=== PATIENT | male | born 1930 | race Caucasian/White ===

== ENCOUNTER 2018-08-09 17:40 | Emergency (ER) | payer OTHER ==
--- NOTE | 2018-08-09 17:55 | EDPHY ---
HPI/HX/ROS/PE/MDM Narrative: CHIEF COMPLAINT: Falls at home HISTORY OF PRESENT ILLNESS: The patient is an 87 y/o male with a history of dementia who arrives via EMS from home for evaluation after two falls in the last 24 hours. Per EMS, he had an unwitnessed fall last night and a second one this morning. The patient doesn't remember falling nor does he know why he is in the ED and no other information regarding the falls are available during assessment. Family on scene reported to EMS that the patient's mentation is at baseline and they have not noticed any abnormal behavior or symptoms since the fall. He denies any pain or other symptoms currently. Home medication paperwork sent with patient lists aspirin, but no anticoagulants. Patient is a poor historian due to dementia, but currently denies fever, chills , chest pain, shortness of breath, palpitations, vomiting, diarrhea, urinary complaints, headache, neck pain, back pain, extremity pain, lightheadedness. REVIEW OF SYSTEMS: Unable to obtain due to dementia. PAST MEDICAL HISTORY: 1. Advanced dementia 2. CAD 3. CKD 4. Diabetes type II 5. BPH 6. Hypertension - Losartan 7. Cellulitis with sepsis 8. C. difficile 9. CHF - Lasix 10. Hypercholesterolemia SOCIAL HISTORY: Lives at home with family. DNR. Nonsmoker. Prior medical records reviewed including admission 04/17/2018 for aspiration pneumonitis and hypoxemia. VITAL SIGNS: Reviewed by me GENERAL: Well-developed, well-nourished, resting comfortably in no respiratory distress. HEENT: Possible mild forehead abrasion vs. mildly excoriated area, otherwise atraumatic. Eyes: No icterus, no injection. Mouth: moist mucous membranes. No erythema or lesions. Neck: supple with no adenopathy. LUNGS: Clear to auscultation bilaterally, no wheezes, rhonchi or rales. CARDIAC: Regular rate and rhythm, no rubs, murmurs or gallops. ABDOMEN: Soft, nontender, nondistended. BACK: No CVA tenderness. EXTREMITIES: Abrasion left forearm. Chronic peripheral edema in stocking glove distribution bilaterally, erythematous and mildly tender. Range of motion is normal throughout. NEURO: Alert and oriented x2, baseline per family, grossly nonfocal. SKIN: Warm and dry, no rash. PSYCHIATRIC: Normal mentation, no agitation. Portions of this note were transcribed by a medical records manager. I personally performed a history, physical exam, medical decision making, and confirmed accuracy of information the transcribed note. ED Course: This is an 87 y/o male with advanced dementia who presents from home after 2 witnessed falls. He has no complaints currently. Further history unavailable at this time. Mild forehead and left forearm abrasions noted. Bilateral lower extremity edema present. Plan for IV, labs, UA, EKG, head and neck CTs, chest x- ray. The 12 lead EKG was interpreted by myself. Sinus mechanism, nonspecific intraventricular conduction delay. See hard copy and/or "tracemaster" electronic copy for interpretation. 1832: and daughter now at bedside. Patient's thinks he fell trying to get out of bed overnight and she was worried he struck his head. He fell again later this afternoon and she believes it is due to leg weakness, but says he falls frequently so it's hard for her to tell what caused the fall today. He did complain to them of back pain at some point this afternoon. He also has been walking with a list to the side, which is new today. Also this afternoon his daughter says he had nonsensical speech. His says he has a history of multiple prior strokes and does have occasional word-finding difficulty, but his speech today was different. They brought him to the ED primarily because another family member was concerned about the recurrent falls. They deny fever, vomiting, diarrhea, cough, or other symptoms. Spine x-rays ordered. Thoracic, lumbar x-rays: no acute fracture. Reassessed patient and discussed findings with family. They are concerned about taking him home due to his recurrent falls and would like him to be admitted to a [facility] facility. Dr. Vela at [facility] accepts admission. MDM: Differential diagnosis of this patients injury was considered including but not limited to intracranial injury, long bone and pelvic bone fracture, spinal injury, intrathoracic injury, extremity injury, intra-abdominal injury, lacerations, abrasions, and contusions. - Data Points Imaging Results: Imaging Impressions Head CT 08/09/18 17:50 Impression: Diffuse severe cerebral atrophy. Nothing acute detected. 2. CT Cervical Spine Without Contrast History: Trauma. Recurrent falls. Technique: Multi-slice ultrathin single breath-hold helical CT through the neck from the skull base through the thoracic inlet without contrast. Soft tissue and bone window evaluation is performed. Sagittal and coronal reconstructions are obtained. Dose reduction techniques were utilized. Findings: There is diffuse osteoporosis. Alignment is anatomic. No fracture or dislocation is identified. Disk spaces are well maintained except for mild narrowing of the C6-C7 disk space.. There is an old Schmorl's node defect involving the inferior C3 and C6 cortical endplates. Facets are normally aligned and are intact. There is bilateral degenerative facet disease, right more numerous than left. The skull base - C1 and C1-C2 relationships are normal. The odontoid process is intact. There is no evidence of a prevertebral or epidural hematoma. The cervical thoracic junction is normally aligned. Impression: Scattered mild degenerative changes described above. Nothing acute identified. Results discussed with Dr. Nichols at 6:30 PM. General information for patients regarding this examination can be found at [employer]. If you have questions or comments about this report, please contact me at (hospital) or [phone] ([facility]). Cervical Spine CT 08/09/18 17:51 Impression: Diffuse severe cerebral atrophy. Nothing acute detected. 2. CT Cervical Spine Without Contrast History: Trauma. Recurrent falls. Technique: Multi-slice ultrathin single breath-hold helical CT through the neck from the skull base through the thoracic inlet without contrast. Soft tissue and bone window evaluation is performed. Sagittal and coronal reconstructions are obtained. Dose reduction techniques were utilized. Findings: There is diffuse osteoporosis. Alignment is anatomic. No fracture or dislocation is identified. Disk spaces are well maintained except for mild narrowing of the C6-C7 disk space.. There is an old Schmorl's node defect involving the inferior C3 and C6 cortical endplates. Facets are normally aligned and are intact. There is bilateral degenerative facet disease, right more numerous than left. The skull base - C1 and C1-C2 relationships are normal. The odontoid process is intact. There is no evidence of a prevertebral or epidural hematoma. The cervical thoracic junction is normally aligned. Impression: Scattered mild degenerative changes described above. Nothing acute identified. Results discussed with Dr. Nichols at 6:30 PM. General information for patients regarding this examination can be found at [employer]. If you have questions or comments about this report, please contact me at (hospital) or [phone] ([facility]). Chest X-Ray 08/09/18 17:52 Impression: Suboptimal inspiratory volume. Nothing acute identified. Lumbar Spine X-Ray 08/09/18 18:38 Impression: Multilevel degenerative disk disease. 2. Thoracic spine, 3 views History: Pain Findings: There is a focal kyphosis of approximately 40 degrees centered at T6, where there is a 30% compression deformity, that is stable since a lateral chest x-ray dated 820 11/30/2017. No new compressions are identified. Alignment is otherwise unremarkable and anatomic. There is no paraspinal stripe widening. Overall mineralization is normal. Impression: Stable T6 compression. Nothing acute identified. Thoracic Spine X-Ray 08/09/18 18:38 Impression: Multilevel degenerative disk disease. 2. Thoracic spine, 3 views History: Pain Findings: There is a focal kyphosis of approximately 40 degrees centered at T6, where there is a 30% compression deformity, that is stable since a lateral chest x-ray dated 820 11/30/2017. No new compressions are identified. Alignment is otherwise unremarkable and anatomic. There is no paraspinal stripe widening. Overall mineralization is normal. Impression: Stable T6 compression. Nothing acute identified. Imaging: Discussed imaging studies w/ scalloper Radiologist, I viewed and interpreted images myself Laboratory Results: Laboratory Results 08/09/18 18:25 08/09/18 18:25 General Time Seen by Provider: 08/09/18 17:41 Initial Vital Signs: Initial Vital Signs Temperature (C) 36.7 C 08/09/18 17:48 Heart Rate 77 08/09/18 17:48 Respiratory Rate 19 08/09/18 17:48 Blood Pressure 171/94 H 08/09/18 17:48 O2 Sat (%) 95 08/09/18 17:48 O2 Delivery Mode Room Air Allergies/Adverse Reactions: latex Allergy (Verified 04/17/18 15:26) lisinopril Allergy (Verified 04/17/18 15:26) Home Medications: Medication Instructions Recorded Acetaminophen [Tylenol 325mg (*)] 650 mg PO Q4 PRN 08/09/18 Aspirin EC [Aspirin EC 325 mg (*)] 325 mg PO DAILY 08/09/18 Bisacodyl [Dulcolax] 10 mg RC PRN PRN 08/09/18 Cholecalciferol Vit D3 [Vitamin D3 1,000 units PO HS 08/09/18 (*)] Furosemide [Lasix 40 MG (*)] 40 mg PO DAILY 08/09/18 Glimepiride [Amaryl 2 MG (*)] 2 mg PO DAILY 08/09/18 Herbals/Supplements -Info Only 1 ea PO DAILY 08/09/18 Losartan Potassium [Cozaar 25 mg 25 mg PO DAILY 08/09/18 (*)] Propranolol HCl [Propranolol HCl 60 mg PO DAILY 08/09/18 ER] Sennosides [Senokot 8.6mg (OTC)] 1 each PO DAILY PRN 08/09/18 Simvastatin 40 mg PO DAILY 08/09/18 Tamsulosin HCl [Flomax 0.4 MG (*)] 0.4 mg PO HS 08/09/18 Departure - Departure Disposition: Acute Care Hospital [facility] Clinical Impression: Recurrent falls, Dementia Condition: Fair Additional Instructions: Call your primary care provider tomorrow morning at 09:00am with Dr. Erickson at [facility] to discuss setting up home health care or other assistive care options. Referrals: Patient,NotPresent [Unknown] - As per Instructions Report Scribed for: Bonita Nichols Report Scribed by: Glenis Jeffries Date of Report: 08/09/18 Time of Report: 17:55
[2018-08-09 18:37] LABS: PLATELET COUNT 157 10^3/uL (150-400)
[2018-08-09 21:34] VITALS: BP 176/73
--- NOTE | 2018-08-09 23:41 | CPEKG ---
Test Reason : OPEN Blood Pressure : / mmHG Vent. Rate : 073 BPM Atrial Rate : 076 BPM P-R Int : 067 ms QRS Dur : 119 ms QT Int : 430 ms P-R-T Axes : 000 -02 056 degrees QTc Int : 474 ms Sinus rhythm Nonspecific intraventricular conduction delay Inferior infarct, old PROLONGED LA Confirmed by Bonita Nichols ([id number]) on 08/09/2018 11:40:55 PM Referred By: Confirmed By:Bonita Nichols
== END 2018-08-09 22:11 | disposition short-term general hospital (02) ==
LOC: EDUNIT#
DX: R29.6 Repeated falls (principal); F03.90 Unspecified dementia, unspecified severity, without behavioral disturbance, psychotic disturbance, mood disturbance, and anxiety